=== PATIENT | male | born 2000 | race Caucasian/White ===

== ENCOUNTER 2024-04-29 21:30 | Emergency (ER) | payer SELFPAY ==
[~2024-04-29] VITALS: Ht 182.9 cm; Wt 84.9 kg
[2024-04-29 21:31] VITALS: TEMP 99.6; O2SAT 98
[2024-04-29 21:36] VITALS: BP 150/72
== END 2024-04-29 22:38 | disposition left against medical advice (07) ==
LOC: M ED 21:30
DX: Z53.21 Procedure and treatment not carried out due to patient leaving prior to being seen by health care provider (principal)